=== PATIENT | male | born 1970 | race Hispanic/Latino ===

== ENCOUNTER → 2024-08-03 | Outpatient (CLI) | payer MEDICARE ==
--- NOTE | 2024-08-03 14:31 | HMCIMG ---
Exam Type: HIP UNILAT 2-3VW LEFT Clinical Information: Pain in left leg Comparison: None Findings: The bone examination is unremarkable. No fractures or dislocations are seen. No radiopaque foreign bodies are noted. Soft tissues are preserved. IMPRESSION: Normal examination.
== END | disposition home or self-care (01) ==
LOC: RAH 13:35
PROVIDERS: ATTEND Internal Medicine Nephrology
DX: M79.605 Pain in left leg (principal)
CPT/HCPCS: 73502

== ENCOUNTER → 2024-08-08 | Outpatient (CLI) | payer MEDICARE ==
--- NOTE | 2024-08-08 16:23 | HMCIMG ---
FEMUR 2VW LEFT HISTORY: Left leg pain COMPARISON: None TECHNIQUE: 4 images of the left femur were obtained. FINDINGS: There is no acute displaced fracture or dislocation. There is soft tissue swelling. Vascular calcifications are seen. Surgical kala are seen at the inferior aspect of the left femur. Degenerative changes are seen. IMPRESSION: 1. Findings as described above.
--- NOTE | 2024-08-08 16:34 | HMCIMG ---
KNEE 3VWS LT HISTORY: Left knee pain COMPARISON: None TECHNIQUE: 3 images of the left knee were obtained. FINDINGS: Postop changes with surgical kala are seen in the mid aspect of the left knee. There is no acute displaced fracture or dislocation. Degenerative changes are seen. IMPRESSION: 1. Findings as described above.
== END | disposition home or self-care (01) ==
LOC: RAH 11:47
PROVIDERS: ATTEND Internal Medicine Nephrology
DX: M17.12 Unilateral primary osteoarthritis, left knee (principal); M79.89 Other specified soft tissue disorders; M89.8X5 Other specified disorders of bone, thigh; M79.605 Pain in left leg; M25.562 Pain in left knee; Z98.890 Other specified postprocedural states
CPT/HCPCS: 73552; 73562

== ENCOUNTER → 2024-12-22 | Outpatient (CLI) | payer MEDICARE ==
--- NOTE | 2024-12-23 06:47 | HMCIMG ---
EXAMINATION: ULTRASOUND OF THE SCROTUM WITH COLOR DOPPLER. TECHNIQUE: Grayscale and color doppler images were submitted. In addition, color Doppler is medically necessary to perform in order to evaluate vascularity and blood flow. CLINICAL HISTORY: Pain. COMPARISON: None. FINDINGS: The testicles are normal in size, contour, and echotexture. The right testicle measures 3.8 x 2.1 x 3.1 cm. The left testicle measures 4.0 x 1.7 x 3.1 cm. There is patent blood flow within the testicles bilaterally. No intra-testicular mass or abnormal echotexture. Bilateral epididymides are normal in appearance. The right epididymis measures 1.0 x 1.4 cm. There are cysts that measure 0.5 x 0.5 x 0.4 cm and 0.2 x 0.2 x 0.3 cm in the head. The left epididymis measures 1.0 x 1.0 cm. There is no varicocele and shows no significant reflux on Valsalva on the right. There is left varicocele that measures 0.3 cm. There is small right hydrocele. No hydrocele on the left. Scrotal barajas appear normal. IMPRESSION: Simple cysts in the head of the right epididymis. Small right hydrocele. Left varicocele. /[place]
== END | disposition home or self-care (01) ==
LOC: RAH 09:26
PROVIDERS: ATTEND Internal Medicine Nephrology
DX: T82.848A Pain due to vascular prosthetic devices, implants and grafts, initial encounter (principal); N50.3 Cyst of epididymis; N43.3 Hydrocele, unspecified; I86.1 Scrotal varices; R10.20 Pelvic and perineal pain unspecified side; N50.819 Testicular pain, unspecified; X58.XXXA Exposure to other specified factors, initial encounter; Y93.89 Activity, other specified; Y92.89 Other specified places as the place of occurrence of the external cause; Y99.8 Other external cause status
CPT/HCPCS: 76870